=== PATIENT | male | born 2000 | race Caucasian/White ===

== ENCOUNTER 2021-04-08 12:16 | Emergency (ER) | payer OTHER ==
[2021-04-08 12:55] VITALS: BMI 23.0
[2021-04-08] MEDS ORDERED: CASIRIVIMAB/IMDEVIMAB 10 ML in SODIUM CHLORIDE 100 ML IVPB ONE (14:30)
[2021-04-08 15:23] VITALS: TEMP 99.4
[2021-04-08 16:53] VITALS: BP 113/68; PULSE 75
== END 2021-04-08 17:10 | disposition home or self-care (01) ==
LOC: JCOVINFU 12:16
DX: U07.1 COVID-19 (principal)
CPT/HCPCS: 99284-25; M0240; Q0240

== ENCOUNTER 2021-08-22 21:17 | Emergency (ER) | payer OTHER ==
[2021-08-22 21:30] VITALS: BP 128/69; PULSE 77; TEMP 98.5; BMI 24.3
[2021-08-24 19:06] LABS: SARS-CoV-2 NAA Detected (Not Detected)
== END 2021-08-22 21:36 | disposition home or self-care (01) ==
LOC: FER 21:17
DX: U07.1 COVID-19 (principal)
CPT/HCPCS: C9803; Q3014-GT; U0003; U0005

== ENCOUNTER → 2021-08-22 | Emergency (ER) | payer OTHER ==
[2021-08-22 20:07] VITALS: BP 128/69; PULSE 70; TEMP 98.5; BMI 24.3
== END ==
LOC: JER 19:39
DX: R05.1 Acute cough (principal)
CPT/HCPCS: 99281-25